=== PATIENT | male | born 1980 | race Caucasian/White ===

== ENCOUNTER 2018-06-09 02:42 | Emergency (ER) | payer MEDICAID ==
--- NOTE | 2018-06-09 03:02 | ED Physician Documentation ---
PD HPI ABD PAIN - Stated complaint Stated Complaint: ABD PAIN - Chief complaint Chief Complaint: Abd Pain - History obtained from History obtained from: Patient - History of Present Illness Timing - onset: Enter time (00:00 (midnight)), Today Timing - duration: Hours Timing - details: Abrupt onset, Waxing and waning Pain level max: 10 Pain level now: 10 Quality: Pain Location: RLQ Radiation: Right flank Improved by: Other (nothing) Worsened by: Other (no exacerbating factors) Associated symptoms: Nausea. No: Fever, Vomiting, Diarrhea, Constipation Similar symptoms before: Has not had sx before Recently seen: Not recently seen - Additional information Additional information: c/o sudden onset right flank pain radiating to RLQ; onset midnight (2-3 hours [employer]) while at rest at home. Review of Systems Constitutional: reports: Reviewed and negative Cardiac: reports: Reviewed and negative Respiratory: reports: Reviewed and negative GI: reports: Abdominal Pain, Nausea. denies: Vomiting, Constipation, Diarrhea : reports: Other (urinary urgency). denies: Dysuria, Frequency Skin: denies: Rash Musculoskeletal: reports: Back pain PD PAST MEDICAL HISTORY - Past Medical History Past Medical History: Yes Respiratory: Asthma GI: Ulcers Musculoskeletal: Fibromyalgia - Past Surgical History Past Surgical History: Yes HEENT: Tonsil/Adenoidectomy - Present Medications Home Medications: Ambulatory Orders Medication Instructions Recorded Confirmed Gabapentin 300 mg PO TID 08/26/12 12/31/13 Albuterol 2.5 mg INH Q4H PRN #30 neb 12/31/13 Albuterol Oral Soln 2.5 mg INH QID PRN 12/31/13 12/31/13 Albuterol [Ventolin Hfa] 2 puffs INH Q4H PRN #1 inhaler 12/31/13 Benzonatate [Tessalon Perle] 100 mg PO BID PRN #20 capsule 12/31/13 Cetirizine HCl/Pseudoephedrine 1 each PO BID PRN #30 tab.er.12h 12/31/13 [Zyrtec-D Tablet] predniSONE [Deltasone] 60 mg PO DAILY 5 Days tablet 12/31/13 Oxycodone HCl/Acetaminophen 1 - 2 each PO Q6H PRN #14 tablet 06/09/18 [Percocet 5-325 mg Tablet] Tamsulosin [Flomax] 0.4 mg PO DAILY #7 capsule 06/09/18 - Allergies Allergies/Adverse Reactions: Allergies Allergy/AdvReac Type Severity Reaction Status Date / Time ibuprofen Allergy Intermediate Emesis Verified 06/09/18 03:13 codeine [Codeine] AdvReac Severe Edema, Verified 06/09/18 03:13 hives Penicillins AdvReac Severe Hives, Verified 06/09/18 03:13 swelling tramadol AdvReac Severe seizure Verified 06/09/18 03:13 - Social History Does the pt smoke?: Yes Smoking Status: Current every day smoker Does the pt drink ETOH?: No Does the pt have substance abuse?: No - Immunizations Immunizations are current?: Yes - POLST Patient has POLST: No PD ED PE NORMAL - Vitals Vital signs reviewed: Yes - General General: Alert and oriented X 3, Well developed/nourished, Other (appears to be in painful distress) - Cardiac Cardiac: RRR, No murmur - Respiratory Respiratory: No respiratory distress, Clear bilaterally - Abdomen Abdomen: Soft, Non tender, Non distended - Back Back: No CVA TTP - Derm Derm: Normal color, Warm and dry, No rash Results - Vitals Vitals: Vital Signs - 24 hr 06/09/18 06/09/18 06/09/18 02:50 03:56 05:36 Temperature 36.5 C 36.8 C Heart Rate 64 61 79 Respiratory 18 14 16 Rate Blood Pressure 141/110 H 133/85 H 129/96 H O2 Saturation 98 97 96 Oxygen O2 Source Room air - Labs Labs: Laboratory Tests 06/09/18 06/09/18 06/09/18 02:50 03:04 03:04 WBC 17.2 H RBC 4.85 Hgb 15.4 Hct 45.6 MCV 94.0 MCH 31.7 H MCHC 33.7 RDW 14.1 Plt Count 363 MPV 8.1 Neut # (Auto) 14.1 H Lymph # (Auto) 1.9 [place] # (Auto) 0.9 Eos # (Auto) 0.2 Baso # (Auto) 0.1 Absolute Nucleated RBC 0.01 Nucleated RBC % 0.1 Sodium 139 Potassium 4.0 Chloride 103 Carbon Dioxide 26 Anion Gap 10.0 BUN 18 Creatinine 1.1 Estimated GFR (MDRD) 75 L Glucose 121 H Calcium 9.4 Total Bilirubin 0.5 AST 20 ALT 26 Alkaline Phosphatase 81 Total Protein 7.3 Albumin 4.5 Globulin 2.8 Albumin/Globulin Ratio 1.6 Lipase 29 Urine Color YELLOW Urine Clarity HAZY Urine pH 6.0 Ur Specific [place] >=1.030 H Urine Protein 30 H Urine Glucose (UA) NEGATIVE Urine Ketones TRACE Urine Occult Blood LARGE H Urine Nitrite NEGATIVE Urine Bilirubin NEGATIVE Urine Urobilinogen 0.2 (NORMAL) Ur Leukocyte Esterase NEGATIVE Urine RBC TNTC H Urine WBC 0-3 Ur Squamous Epith Cells RARE Squamous Urine Bacteria Rare Urine Mucus Moderate Strands Ur Microscopic Review INDICATED Urine Culture Comments NOT INDICATED - Rads (name of study) CT A/P Radiology: Prelim report reviewed, See rad report PD MEDICAL DECISION MAKING - ED course Complexity details: reviewed results, re-evaluated patient, considered differential, d/w patient ED course: Patient reported good symptom relief with IV toradol (also given IV zofran). 2mm right ureteral calculus with mild obstruction on CT. Given flomax and rx for same, as well as dose of oxycodone prior to discharge due to the pain gradually returning (still in NAD at time of discharge) and rx for percocet. Departure - Departure Disposition: 01 Home, Self Care Clinical Impression: Renal colic Condition: Good Instructions: ED Stone Renal W Colic Follow-Up: [facility] [Provider Group] [facility] [Provider Group] Prescriptions: Oxycodone HCl/Acetaminophen [Percocet 5-325 mg Tablet] 1 - 2 each PO Q6H PRN #14 tablet PRN Reason: pain Tamsulosin [Flomax] 0.4 mg PO DAILY #7 capsule Discharge Date/Time: 06/09/18 05:43
[2018-06-09 03:04] LABS: BILIRUBIN,URINE NEGATIVE (NEGATIVE); CLARITY,URINE HAZY (CLEAR); GLUCOSE, URINE (UA) NEGATIVE (NEGATIVE); KETONES,URINE (UA) TRACE mg/dL (NEGATIVE); LEUKOCYTE ESTERASE, URINE NEGATIVE (NEGATIVE); NITRITE,URINE NEGATIVE (NEGATIVE); OCCULT BLOOD,URINE LARGE (NEGATIVE); PROTEIN,URINE 30 mg/dL (NEGATIVE); UROBILINOGEN,URINE 0.2 (NORMAL) E.U./dL (NORMAL)
[2018-06-09 03:10] LABS: RBC,URINE TNTC /HPF (0-5)
[2018-06-09 03:11] LABS: BACTERIA,URINE Rare /HPF (None Seen); MUCUS,URINE Moderate Strands; SQUAMOUS EPITHELIAL CELL,UR RARE Squamous (<= Few)
[2018-06-09 03:13] LABS: BASOPHILS # (AUTO) 0.1 10^3/uL (0.0-0.1); BASOPHILS % (AUTO) 0.4 %; EOSINOPHILS # (AUTO) 0.2 10^3/uL (0.0-0.7); EOSINOPHILS % (AUTO) 1.2 %; HGB - HEMOGLOBIN 15.4 g/dL (14.0-18.0); LYMPHOCYTES # (AUTO) 1.9 10^3/uL (1.5-3.5); LYMPHOCYTES % (AUTO) 11.2 %; MEAN CORPUSCULAR HEMOGLOBIN 31.7 pg (27.0-31.0); MEAN CORPUSCULAR HGB CONC 33.7 g/dL (32.0-36.0); MEAN PLATELET VOLUME 8.1 fL (7.4-11.4); MONOCYTES # (AUTO) 0.9 10^3/uL (0.0-1.0); MONOCYTES % (AUTO) 5.3 %; NEUTROPHILS # (AUTO) 14.1 10^3/uL (1.5-6.6); NEUTROPHILS % (AUTO) 81.9 %; PLT - PLATELET COUNT 363 10^3/uL (130-450); RED BLOOD COUNT 4.85 10^6/uL (4.70-6.10); RED CELL DISTRIBUTION WIDTH 14.1 % (12.0-15.0); WHITE BLOOD COUNT 17.2 x10^3/uL (4.8-10.8)
[2018-06-09] MEDS ORDERED: KETOROLAC 30 MG/ML VIAL IVP STA (03:19)
[2018-06-09] MEDS ORDERED: ONDANSETRON 4 MG/2 ML VIAL IVP STA (03:19)
[2018-06-09 03:28] LABS: ALBUMIN 4.5 g/dL (3.2-5.5); ALBUMIN/GLOBULIN RATIO 1.6 (1.0-2.2); BILIRUBIN,TOTAL 0.5 mg/dL (0.2-1.0); CALCIUM 9.4 mg/dL (8.5-10.3); CREATININE 1.1 mg/dL (0.6-1.2); TOTAL PROTEIN 7.3 g/dL (6.7-8.2)
[2018-06-09] MEDS ORDERED: IOVERSOL 320 100 ML VIAL IVP ONE ×2 (03:30→04:40)
--- NOTE | 2018-06-09 04:59 | CT Report ---
Reason: RLQ pain Procedure Date: 06/09/2018 Accession Number: [id number] / [id number] Procedure: CT - Abdomen/Pelvis W CPT Code: FULL RESULT: EXAM: CT ABDOMEN AND PELVIS EXAM DATE: 06/09/2018 04:42 AM. CLINICAL HISTORY: Right lower quadrant pain. COMPARISONS: None. TECHNIQUE: Routine helical CT imaging was performed through the abdomen and pelvis. IV contrast: Yes. Enteric contrast: No. Reconstructions: Coronal and sagittal. In accordance with CT protocol optimization, one or more of the following dose reduction techniques were utilized for this exam: automated exposure control, adjustment of mA and/or KV based on patient size, or use of iterative reconstructive technique. FINDINGS: Lung Bases: Unremarkable. Liver: Unremarkable. No suspicious masses. Gallbladder/Bile Ducts: Unremarkable. Spleen: Unremarkable. Pancreas: Unremarkable. Adrenal Glands: Unremarkable. Kidneys: Mildly obstructing 2 mm distal right ureteral stone less than a centimeter from the UPJ. No suspicious masses or left hydronephrosis. Peritoneal Cavity/Bowel: No bowel obstruction or inflammatory process seen. No free air or significant free fluid. No masses or adenopathy. The appendix is normal. No excessive stool burden. Pelvic Organs: Bladder and prostate appear unremarkable. Vasculature: No aneurysms or other significant abnormality. Bones: No significant abnormality. Other: None. IMPRESSION: Mildly obstructing 2 mm distal right ureteral stone. RADIA
[2018-06-09] MEDS ORDERED: oxyCODONE 5 MG TABLET PO STA (05:27)
[2018-06-09] MEDS ORDERED: TAMSULOSIN 0.4 MG CAPSULE PO STA (05:27)
[2018-06-09] MEDS ORDERED: PHENAZOPYRIDINE 100 MG TABLET PO STA (05:28)
[2018-06-09 05:37] VITALS: BP 129/96
== END 2018-06-09 05:43 | disposition home or self-care (01) ==
LOC: ED 02:42
DX: N20.1 Calculus of ureter (principal); F17.200 Nicotine dependence, unspecified, uncomplicated
CPT/HCPCS: 36415; 74177; 80053; 81001; 83690; 85025; 96374; 99283; 99284; A9270; Q9967; 81003; 87086